=== PATIENT | female | born 1955 | race Caucasian/White ===

== ENCOUNTER 2022-11-02 05:04 | Inpatient (IN) | payer OTHER ==
[~2022-11-02] VITALS: Ht 160 cm; Wt 79.8 kg
[2022-11-02 05:12] VITALS: BP_SYST 167; PULSE 79; RESP 17; TEMP 97.2; O2SAT 97
[2022-11-02 06:00] LABS: BASOPHILS # (AUTO) 0.1 K/uL (0.0-0.2); BASOPHILS % (AUTO) 1.1 % (0.0-2.0); EOSINOPHILS # (AUTO) 0.2 K/uL (0.0-0.4); EOSINOPHILS % (AUTO) 1.5 % (0.0-4.0); HEMATOCRIT 40.2 % (36-48); HEMOGLOBIN 13.5 g/dL (12.0-16.0); LYMPHOCYTES # (AUTO) 1.7 K/uL (1.0-5.5); LYMPHOCYTES % (AUTO) 17.2 % (20.5-51.5); MEAN CORPUSCULAR HEMOGLOBIN 30 pg (27-31); MEAN CORPUSCULAR HGB CONC 34 % (32-36); MEAN CORPUSCULAR VOLUME 88 fL (79.0-98.0); MONOCYTES # (AUTO) 0.4 K/uL (0.0-1.0); MONOCYTES % (AUTO) 3.8 % (1.7-9.3); NEUTROPHILS # (AUTO) 7.7 K/uL (1.8-7.7); NEUTROPHILS % (AUTO) 76.4 % (40.0-70.0); PLATELET COUNT (AUTO) 288 K/uL (130-430); RED BLOOD CELL COUNT(AUTO) 4.58 MIL/uL (4.2-6.2); RED CELL DISTRIBUTION WIDTH 13.4 % (9.0-15.0); WHITE BLOOD COUNT (AUTO) 10.1 K/uL (4.8-10.8)
[2022-11-02 06:27] LABS: PROTHROMBIN TIME 10.3 SECS (9.5-12.5)
[2022-11-02 08:23] LABS: CALCIUM 8.6 mg/dL (8.4-11.0); CREATININE 0.52 mg/dL (0.55-1.30); POTASSIUM 3.5 mmol/L (3.5-5.1)
[2022-11-02 08:29] LABS: ALBUMIN 3.4 g/dL (3.4-4.8); TOTAL BILIRUBIN 1.1 mg/dL (0.0-1.0); TOTAL PROTEIN, SERUM 6.6 g/dL (6.4-8.3)
[2022-11-02] MEDS ORDERED: OMEP20CA15 PO (10:31)
[2022-11-02 12:10] VITALS: BP_SYST 164; PULSE 84; RESP 20; TEMP 97.7; O2SAT 100
[2022-11-02 12:25] VITALS: BP_SYST 164; PULSE 82; RESP 17; TEMP 97.7; O2SAT 98
[2022-11-02] MEDS: D5/0.45 NS 1,000 ML IV SCH ×2 (12:33→23:50)
[2022-11-02] MEDS: metroNIDAZOLE 500 mg/NS 100 ML IV SCH ×2 (14:50→22:40)
[2022-11-02 16:00] VITALS: BP_SYST 148; PULSE 80; RESP 20; TEMP 97.3; O2SAT 100
[2022-11-02 20:00] VITALS: BP_SYST 147; PULSE 67; RESP 18; TEMP 97.4; O2SAT 97
[2022-11-02] MEDS ORDERED: GOLYTELY / COLYTE SOLUTION 4 LITERS PO ONE (21:30)
[2022-11-02] MEDS ORDERED: GOLYTELY / COLYTE SOLUTION 4 LITERS ONE (21:42)
[2022-11-02] MEDS: PANTOPRAZOLE SODIUM 40 MG/VIAL (PROTONIX) IVP SCH (22:41)
[2022-11-03 00:40] VITALS: BP_SYST 149; PULSE 83; RESP 16; TEMP 98; O2SAT 95
[2022-11-03 05:56] LABS: BASOPHILS # (AUTO) 0.1 K/uL (0.0-0.2); BASOPHILS % (AUTO) 1.2 % (0.0-2.0); EOSINOPHILS # (AUTO) 0.2 K/uL (0.0-0.4); EOSINOPHILS % (AUTO) 1.9 % (0.0-4.0); HEMATOCRIT 42.5 % (36-48); HEMOGLOBIN 14.1 g/dL (12.0-16.0); LYMPHOCYTES # (AUTO) 2.4 K/uL (1.0-5.5); LYMPHOCYTES % (AUTO) 20.2 % (20.5-51.5); MEAN CORPUSCULAR HEMOGLOBIN 30 pg (27-31); MEAN CORPUSCULAR HGB CONC 33 % (32-36); MEAN CORPUSCULAR VOLUME 89 fL (79.0-98.0); MONOCYTES # (AUTO) 0.4 K/uL (0.0-1.0); MONOCYTES % (AUTO) 3.4 % (1.7-9.3); NEUTROPHILS # (AUTO) 8.8 K/uL (1.8-7.7); NEUTROPHILS % (AUTO) 73.3 % (40.0-70.0); PLATELET COUNT (AUTO) 306 K/uL (130-430); RED BLOOD CELL COUNT(AUTO) 4.78 MIL/uL (4.2-6.2); RED CELL DISTRIBUTION WIDTH 13.5 % (9.0-15.0)
[2022-11-03 06:08] LABS: CALCIUM 8.5 mg/dL (8.4-11.0); CREATININE 0.57 mg/dL (0.55-1.30); POTASSIUM 3.4 mmol/L (3.5-5.1)
[2022-11-03] MEDS: metroNIDAZOLE 500 mg/NS 100 ML IV SCH ×3 (06:21→23:44)
[2022-11-03] MEDS ORDERED: fentaNYL CITRATE/PF 100 MCG/2 ML AMP ONE (07:31)
[2022-11-03] MEDS ORDERED: MIDAZOLAM HCL 5 MG/5 ML VIAL ONE (07:31)
[2022-11-03 08:00] VITALS: O2SAT 98
[2022-11-03 08:27] VITALS: BP_SYST 136; PULSE 80; RESP 18; TEMP 97.7; O2SAT 98
[2022-11-03] MEDS: PANTOPRAZOLE SODIUM 40 MG/VIAL (PROTONIX) IVP SCH ×2 (09:20→21:19)
[2022-11-03] MEDS: D5/0.45 NS 1,000 ML IV SCH (11:04)
[2022-11-03 11:48] VITALS: BP_SYST 129; PULSE 84; RESP 18; TEMP 98.6; O2SAT 96
[2022-11-03 16:34] VITALS: BP_SYST 126; PULSE 76; RESP 18; TEMP 98.1; O2SAT 98
[2022-11-03 20:00] VITALS: BP_SYST 157; PULSE 78; RESP 18; TEMP 99; O2SAT 95
[2022-11-04 00:45] VITALS: BP_SYST 132; PULSE 68; RESP 17; TEMP 98; O2SAT 98
[2022-11-04 02:10] VITALS: BP_SYST 157; PULSE 78; RESP 18; TEMP 99; O2SAT 95
[2022-11-04] MEDS: D5/0.45 NS 1,000 ML IV SCH ×2 (02:30→04:20)
[2022-11-04 05:42] LABS: BASOPHILS # (AUTO) 0.1 K/uL (0.0-0.2); BASOPHILS % (AUTO) 1.3 % (0.0-2.0); EOSINOPHILS # (AUTO) 0.5 K/uL (0.0-0.4); EOSINOPHILS % (AUTO) 5.2 % (0.0-4.0); HEMATOCRIT 36.5 % (36-48); HEMOGLOBIN 12.2 g/dL (12.0-16.0); LYMPHOCYTES % (AUTO) 21.1 % (20.5-51.5); MEAN CORPUSCULAR HEMOGLOBIN 29 pg (27-31); MEAN CORPUSCULAR HGB CONC 33 % (32-36); MEAN CORPUSCULAR VOLUME 88 fL (79.0-98.0); MONOCYTES # (AUTO) 0.3 K/uL (0.0-1.0); MONOCYTES % (AUTO) 3.7 % (1.7-9.3); NEUTROPHILS # (AUTO) 6.5 K/uL (1.8-7.7); NEUTROPHILS % (AUTO) 68.7 % (40.0-70.0); PLATELET COUNT (AUTO) 256 K/uL (130-430); RED BLOOD CELL COUNT(AUTO) 4.15 MIL/uL (4.2-6.2); RED CELL DISTRIBUTION WIDTH 13.6 % (9.0-15.0); WHITE BLOOD COUNT (AUTO) 9.4 K/uL (4.8-10.8)
[2022-11-04 05:48] LABS: CALCIUM 8.4 mg/dL (8.4-11.0); CREATININE 0.48 mg/dL (0.55-1.30); POTASSIUM 3.4 mmol/L (3.5-5.1)
[2022-11-04] MEDS: metroNIDAZOLE 500 mg/NS 100 ML IV SCH (05:58)
[2022-11-04 08:00] VITALS: BP_SYST 127; PULSE 77; RESP 16; TEMP 98.2; O2SAT 98
[2022-11-04 08:20] VITALS: O2SAT 98
[2022-11-04] MEDS: PANTOPRAZOLE SODIUM 40 MG/VIAL (PROTONIX) IVP SCH (09:35)
[2022-11-04] MEDS ORDERED: LEVO-62 PO (11:21)
[2022-11-04] MEDS ORDERED: METR-154 PO (11:21)
[2022-11-04 12:11] VITALS: BP_SYST 143; PULSE 72; RESP 16; TEMP 96.8; O2SAT 97
== END 2022-11-04 13:30 | disposition home health service (06) | DRG 392 ==
LOC: SED 05:04 → SMU 10:25
PROVIDERS: ADMIT Specialist; ATTEND Specialist
DX: A09 Infectious gastroenteritis and colitis, unspecified (principal); K21.9 Gastro-esophageal reflux disease without esophagitis; Z91.040 Latex allergy status; Z79.899 Other long term (current) drug therapy; Z90.710 Acquired absence of both cervix and uterus
CPT/HCPCS: 36415; 76376; 80048; 80053; 82150; 83605; 83690; 85025; 85610-TC; 85730-TC; 87040; 93005; 99285; C9113; J1956; J2250; J3010; J3490; Q9967